=== PATIENT | male | born 1970 | race Hispanic/Latino ===

== ENCOUNTER 2016-07-20 13:55 | Emergency (ER) | payer MEDICAID ==
[2016-07-20 13:59] VITALS: BP 130/79; PULSE 109; RESP 20; O2SAT 95
--- NOTE | 2016-07-20 14:40 | ED PDOC ---
HPI: CCC, URI, Sore Throat Time Seen by Provider: 07/20/16 14:10 Chief Complaint (Nursing): Cough, Cold, Congestion Chief Complaint (Provider): Cough History Per: Patient History/Exam Limitations: no limitations Have you had recent travel within the past 21 days to any of the following countries: [place], [place], [place] or [place]?: No Onset/Duration Of Symptoms: Days (x10 days) Current Symptoms Are (Timing): Still Present Location Of Pain: Throat, Diffuse Myalgias, Headache, Other (head, back, and chest pain) Associated Symptoms: Fever, Sore Throat, Cough (productive, non-bloody), Sputum (yellow), Myalgias, Nasal Congestion, Diarrhea (x12 episodes, watery stool). denies: Nausea, Vomiting Severity: Moderate Additional Complaint(s): Tyrese Ledezma is a 45 year old male, with a past medical history of asthma and bronchitis, who presents to the emergency department for the evaluation of a productive, non-bloody cough that produces yellow sputum, that the patient has been experiencing for the past 10 days. Patient was recently seen in [facility] and prescribed Augmentin 2 days ago; however, it provided no relief, prompting his visit to the emergency department. Associated nasal congestion, diffuse myalgias, fever, headache, 12 episodes of watery diarrhea, and head, back, and chest pain are currently present. Denies nausea or vomiting. Of note, patient denies taking any anti-pyretics at home. PMD: none specified Past Medical History Reviewed: Historical Data, Nursing Documentation, Vital Signs Vital Signs: Last Vital Signs Temp 103 F H 07/20/16 18:33 Pulse 109 H 07/20/16 13:57 Resp 20 07/20/16 13:57 BP 130/79 07/20/16 13:57 Pulse Ox 95 07/20/16 15:07 - Medical History PMH: Anxiety, Asthma, Bronchitis, Depression Denies: Chronic Kidney Disease - Family History Family History: States: No Known Family Hx - Social History Current smoker - smoking cessation education provided: Yes (>10 cigarettes daily ) Alcohol: Social Drugs: Cannabis - Home Medications Home Medications: Ambulatory Orders Medication Instructions Recorded Azithromycin [Zithromax] 500 mg PO DAILY #6 tab 07/20/16 Methylprednisolone [Medrol Dose 4 mg PO DAILY #21 mg 07/20/16 Pack (21 tabs)] Promethazine HCl/Codeine 5 ml PO HS #80 ml 07/20/16 [Prometh-Codein 6.25-10 mg/5 ml] - Allergies Allergies/Adverse Reactions: Allergies Allergy/AdvReac Type Severity Reaction Status Date / Time No Known Allergies Allergy Verified 07/20/16 13:56 Review of Systems ROS Statement: Except As Marked, All Systems Reviewed And Found Negative Constitutional: Positive for: Fever, Other (diffuse myalgias) ENT: Positive for: Nose Congestion Cardiovascular: Positive for: Chest Pain Respiratory: Positive for: Cough, Sputum (yellow). Negative for: Hemoptysis Gastrointestinal: Positive for: Diarrhea (x12 episodes, watery stool). Negative for: Nausea, Vomiting Musculoskeletal: Positive for: Back Pain, Other (head pain) Neurological: Positive for: Headache Physical Exam - Reviewed Nursing Documentation Reviewed: Yes Vital Signs Reviewed: Yes - Physical Exam Appears: Positive for: Non-toxic, In Acute Distress (mild respiratory distress) Head Exam: Positive for: ATRAUMATIC, NORMOCEPHALIC Skin: Positive for: Normal Color, Warm, Dry ENT: Positive for: Normal ENT Inspection, Nasal Congestion. Negative for: Pharyngeal Erythema, Tonsillar Exudate, Tonsillar Swelling Neck: Positive for: Normal, Painless ROM, Supple Cardiovascular/Chest: Positive for: Regular Rate, Rhythm. Negative for: Murmur Respiratory: Positive for: Normal Breath Sounds. Negative for: Respiratory Distress Back: Positive for: Normal Inspection. Negative for: L CVA Tenderness, R CVA Tenderness Neurologic/Psych: Positive for: Alert, Oriented - Laboratory Results Result Diagrams: 07/20/16 18:00 07/20/16 18:00 - ECG O2 Sat by Pulse Oximetry: 95 (RA) Pulse Ox Interpretation: Normal Medical Decision Making Medical Decision Makin:10 Initial Impression: URI Initial Plan: * Chest X-Ray: Prominent central pulmonary markings compatible with lower airways disease, bronchitis. No discrete infiltrates * CBC, COMP and Blood Cultures * WBCs WNL * Repeat temp: 98.7 F * * Started on IV Rocephin and Zithro while in ED Scribe Attestation: Documented by Steve Poon, acting as a scribe for TANYA Salguero. Provider Scribe Attestation: All medical record entries made by the Scribe were at my direction and personally dictated by me. I have reviewed the chart and agree that the record accurately reflects my personal performance of the history, physical exam, medical decision making, and the department course for this patient. I have also personally directed, reviewed, and agree with the discharge instructions and disposition. Disposition - Clinical Impression Clinical Impression: Bronchitis - Patient ED Disposition Is Patient to be Admitted: No - Disposition Disposition: Routine/Home Disposition Time: 19:14 Condition: STABLE Prescriptions: Methylprednisolone [Medrol Dose Pack (21 tabs)] 4 mg PO DAILY #21 mg Promethazine HCl/Codeine [Prometh-Codein 6.25-10 mg/5 ml] 5 ml PO HS #80 ml Azithromycin [Zithromax] 500 mg PO DAILY #6 tab Instructions: Acute Bronchitis (ED) - POA Present On Arrival: None
--- NOTE | 2016-07-20 15:57 | RAD ---
HISTORY: fever and cough COMPARISON: None. TECHNIQUE: Chest PA and lateral FINDINGS: LUNGS: Increased interstitial markings without focal infiltrate. Significance/etiology uncertain. Likely lower airway disease, bronchitis. PLEURA: No significant pleural effusion identified. No pneumothorax apparent. CARDIOVASCULAR: Normal. OSSEOUS STRUCTURES: No significant abnormalities. VISUALIZED UPPER ABDOMEN: Normal. OTHER FINDINGS: None. IMPRESSION: Prominent central pulmonary markings compatible with lower airways disease, bronchitis. No discrete infiltrates
[2016-07-20] MEDS ORDERED: cefTRIAXone (Rocephin) 1 gm Inj ONE (18:10)
[2016-07-20 18:28] LABS: BASO % 0.2 % (0.0-2.0); HEMATOCRIT 38.2 % (35.0-51.0); LYMPH # 0.5 K/uL (1.0-4.3); LYMPH % 5.2 % (20.0-40.0); MEAN CELL VOLUME 86.2 fl (80.0-94.0); MEAN CORPUSCULAR HEMOGLOBIN 29.5 pg (27.0-31.0); MEAN CORPUSCULAR HGB CONC 34.2 g/dL (33.0-37.0); MEAN PLATELET VOLUME 7.3 fl (7.2-11.7); MONO # 0.3 K/uL (0.0-0.8); MONO % 2.5 % (0.0-10.0); NEUT # 9.4 K/uL (1.8-7.0); NEUT % 92.1 % (50.0-75.0); NRBC % 0.1 % (0.0-0.0); PLATELET COUNT 143 K/uL (130-400); WHITE BLOOD COUNT 10.2 K/uL (4.8-10.8)
[2016-07-20 18:33] VITALS: TEMP 103
[2016-07-20 18:37] LABS: ALB/GLOB RATIO 1.1 (1.0-2.1); ALKALINE PHOSPHATASE 55 U/L (38-126); ALT/SGPT 43 U/L (21-72); AST/SGOT 63 U/L (17-59); BILIRUBIN,TOTAL 0.6 mg/dl (0.2-1.3); BLOOD UREA NITROGEN 13 mg/dl (9-20); CALCIUM 8.2 mg/dL (8.4-10.2); CARBON DIOXIDE 25 mmol/L (22-30); CHLORIDE 95 mmol/L (98-107); GFR AFRICAN-AMERICAN > 60; GLUCOSE,RANDOM 100 mg/dL (75-110); POTASSIUM 4.3 MMOL/L (3.6-5.0); SODIUM 133 mmol/l (132-148)
[2016-07-20 21:12] LABS: NEUTROPHIL 84 % (42-75); TOTAL CELLS COUNTED 100
[2016-07-21] MEDS ORDERED: Azithromycin 500 MG in Sodium Chloride 0.9% 250 ML IVPB SCH (09:00)
== END 2016-07-20 19:58 | disposition home or self-care (01) ==
LOC: H.ER 13:55
DX: J20.9 Acute bronchitis, unspecified (principal); J02.9 Acute pharyngitis, unspecified; R51 Headache; R07.9 Chest pain, unspecified; F17.210 Nicotine dependence, cigarettes, uncomplicated; F41.9 Anxiety disorder, unspecified; R50.9 Fever, unspecified; R05 Cough; J45.909 Unspecified asthma, uncomplicated

== ENCOUNTER 2016-12-21 10:49 | Emergency (ER) | payer MEDICAID ==
[2016-12-21 11:21] VITALS: BMI 31.5
[2016-12-21 12:15] LABS: MEAN CELL VOLUME 87.4 fl (80.0-94.0); MEAN CORPUSCULAR HEMOGLOBIN 29.9 pg (27.0-31.0); MEAN CORPUSCULAR HGB CONC 34.2 g/dL (33.0-37.0); RED CELL DISTRIBUTION WIDTH 14.4 % (11.5-14.5)
[2016-12-21 12:16] LABS: RBC URINE 2 /hpf (0-3); URINE BACTERIA RARE (<OCC); URINE BILIRUBIN NEGATIVE (NEGATIVE); URINE BLOOD NEGATIVE (NEGATIVE); URINE COLOR YELLOW (YELLOW); URINE GLUCOSE (UA) NEG (Normal); URINE KETONE TRACE mg/dL (NEGATIVE); URINE LEUKOCYTE ESTERASE NEG Leu/uL (Negative); URINE PROTEIN NEGATIVE (NEGATIVE); URINE UROBILINOGEN 0.2-1.0 mg/dL (0.2-1.0); WBC URINE 1 /hpf (0-5)
[2016-12-21 12:22] LABS: ALB/GLOB RATIO 1.5 (1.0-2.1); ALCOHOL SERUM < 10 mg/dl (0-10); ALKALINE PHOSPHATASE 64 U/L (38-126); ALT/SGPT 22 U/L (21-72); AST/SGOT 16 U/L (17-59); BILIRUBIN,TOTAL 0.5 mg/dl (0.2-1.3); BLOOD UREA NITROGEN 12 mg/dl (9-20); CARBON DIOXIDE 25 mmol/L (22-30); CHLORIDE 105 mmol/L (98-107); GFR AFRICAN-AMERICAN > 60; GLUCOSE,RANDOM 91 mg/dL (75-110); POTASSIUM 4.6 MMOL/L (3.6-5.0); SODIUM 138 mmol/l (132-148); TOTAL PROTEIN 6.8 G/DL (6.3-8.2)
--- NOTE | 2016-12-21 12:33 | ED PDOC ---
HPI: Psych/Substance Abuse Time Seen by Provider: 12/21/16 10:54 Chief Complaint (Nursing): Psychiatric Evaluation Chief Complaint (Provider): SI History Per: Patient History/Exam Limitations: no limitations Onset/Duration Of Symptoms: Days Current Symptoms Are (Timing): Still Present Additional Complaint(s): Pt states he is having SI because he does not like living in the snf, he is never alone and the girl he likes does not like him. Pt denies plan. History of depression and anxiety Past Medical History Reviewed: Historical Data, Nursing Documentation, Vital Signs Vital Signs: Last Vital Signs Temp 98.5 F 12/21/16 11:38 Pulse 84 12/21/16 11:38 Resp 17 12/21/16 11:38 BP 135/78 12/21/16 11:38 Pulse Ox 99 12/21/16 11:38 - Medical History PMH: Anxiety, Asthma, Bronchitis, Depression Denies: Diabetes, Hepatitis, HIV, HTN, Chronic Kidney Disease, Seizures, Sexually Transmitted Disease - Surgical History Surgical History: No Surg Hx - Family History Family History: States: Unknown Family Hx - Living Arrangements Living Arrangements: Other (Homeless - Stays in snf) - Social History Current smoker - smoking cessation education provided: No Alcohol: Occasional Drugs: Denies - Immunization History Hx Tetanus Toxoid Vaccination: No Hx Influenza Vaccination: (unk) Hx Pneumococcal Vaccination: (unk) - Home Medications Home Medications: Ambulatory Orders Medication Instructions Recorded Albuterol HFA [Ventolin HFA 90 2 puff IH [id number] PRN 12/03/16 mcg/actuation (8 g)] Escitalopram [Lexapro] 10 mg PO DAILY #5 tab 12/03/16 Ibuprofen [Motrin] 600 mg PO TID 12/03/16 QUEtiapine [SEROquel] 100 mg PO HS #5 tab 12/03/16 Venlafaxine [Effexor XR] 75 mg PO TID #15 cer 12/03/16 busPIRone [Buspar] 5 mg PO TID #15 tab 12/03/16 Amoxicillin [Amoxil 500 mg Cap] 500 mg PO TID 12/21/16 Cetirizine HCl [All Day Allergy 10 mg PO DAILY 12/21/16 Relief] Fluticasone/Salmeterol [Airduo 1 puff IH Q12H 12/21/16 Respiclick 232-14 Mcg] Gabapentin [Neurontin] 300 mg PO TID 12/21/16 - Allergies Allergies/Adverse Reactions: Allergies Allergy/AdvReac Type Severity Reaction Status Date / Time No Known Allergies Allergy Verified 12/03/16 10:23 Review of Systems ROS Statement: Except As Marked, All Systems Reviewed And Found Negative Constitutional: Negative for: Fever, Chills Gastrointestinal: Negative for: Nausea, Vomiting, Abdominal Pain Psych: Positive for: Suicidal ideation Physical Exam - Reviewed Nursing Documentation Reviewed: Yes Vital Signs Reviewed: Yes - Physical Exam Appears: Positive for: Well, Non-toxic, No Acute Distress Head Exam: Positive for: ATRAUMATIC, NORMAL INSPECTION, NORMOCEPHALIC Skin: Positive for: Normal Color, Warm, DRY Eye Exam: Positive for: Normal appearance ENT: Positive for: Normal ENT Inspection Neck: Positive for: Normal, Painless ROM Cardiovascular/Chest: Positive for: Regular Rate, Rhythm Respiratory: Positive for: CNT, Normal Breath Sounds Gastrointestinal/Abdominal: Positive for: Normal Exam, Bowel Sounds, Soft Back: Positive for: Normal Inspection Extremity: Positive for: Normal ROM. Negative for: Tenderness Neurologic/Psych: Positive for: Alert, Oriented - Laboratory Results Result Diagrams: 12/21/16 11:54 12/21/16 11:54 - ECG O2 Sat by Pulse Oximetry: 99 Medical Decision Making Medical Decision Making: Pt screened by [facility]. Disposition - Clinical Impression Clinical Impression: Depression - Disposition Referrals: [facility] [Outside] Disposition: Routine/Home Disposition Time: 18:54 Condition: GOOD Instructions: Depression (ED) Forms: [employer] (Mongolian)
--- NOTE | 2016-12-21 16:02 | RAD ---
HISTORY: COMPARISON: 07/20/2016. TECHNIQUE: Chest PA and lateral FINDINGS: LINES AND TUBES: None. LUNG AND PLEURA: The lungs are hyperinflated and there is peribronchial thickening with chronic changes in both lungs. No focal consolidation. HEART AND MEDIASTINUM: The heart is not enlarged. The hilar and mediastinal contours are within normal limits. SKELETAL STRUCTURES: The bony structures are within normal limits for the patient's age. VISUALIZED UPPER ABDOMEN: Normal. OTHER FINDINGS: None. IMPRESSION: No active pulmonary disease. COPD.
--- NOTE | 2016-12-21 17:20 | CARD ---
APPROVED REPORT EKG Measurement Heart [id number] <Conclusion> Normal sinus rhythm Normal ECG
[2016-12-21 18:33] VITALS: BP 115/60; PULSE 73; RESP 18; TEMP 98
[2016-12-21 18:54] VITALS: O2SAT 99
== END 2016-12-21 19:50 | disposition home or self-care (01) ==
LOC: H.ER 10:49
DX: F32.9 Major depressive disorder, single episode, unspecified (principal); F41.9 Anxiety disorder, unspecified

== ENCOUNTER 2017-01-03 21:17 | Emergency (ER) | payer MEDICAID ==
[2017-01-03 21:17] VITALS: BMI 31.5
[2017-01-03 21:21] VITALS: O2SAT 99
[2017-01-03] MEDS ORDERED: Albuterol 0.083% Inhal Sol (2.5 mg/3 mL) UD INH ONE (21:46)
--- NOTE | 2017-01-03 21:47 | ED PDOC ---
HPI: CCC, URI, Sore Throat Time Seen by Provider: 01/03/17 21:25 Chief Complaint (Nursing): Cough, Cold, Congestion Chief Complaint (Provider): Cough History Per: Patient History/Exam Limitations: no limitations Onset/Duration Of Symptoms: Days Current Symptoms Are (Timing): Still Present Associated Symptoms: Fever, Cough, Sputum, Nausea Additional Complaint(s): Tyrese is a 46 y/o male with a past medical history of anxiety, depression, and asthma, who presents to the ED complaining of a productive cough with associated dizziness, headache, and shortness of breath. Cough is productive of yellow or clear phlegm. He reports having a subjective fever and feels nauseous but has not vomited. . PMD: [facility] Past Medical History Reviewed: Historical Data, Nursing Documentation, Vital Signs Vital Signs: Last Vital Signs Temp 98.5 F 01/04/17 00:25 Pulse 92 H 01/04/17 00:25 Resp 16 01/04/17 00:25 BP 112/62 01/04/17 00:25 Pulse Ox 99 01/04/17 00:28 - Medical History PMH: Anxiety, Asthma, Bronchitis, Depression Denies: Diabetes, Hepatitis, HIV, HTN, Chronic Kidney Disease, Seizures, Sexually Transmitted Disease - Surgical History Other surgeries: Lumbar spine surgery, recent dental work - Family History Family History: States: Unknown Family Hx - Social History Current smoker - smoking cessation education provided: No Alcohol: None Drugs: Denies - Immunization History Hx Tetanus Toxoid Vaccination: No Hx Influenza Vaccination: (unk) Hx Pneumococcal Vaccination: (unk) - Home Medications Home Medications: Ambulatory Orders Medication Instructions Recorded Escitalopram [Lexapro] 10 mg PO DAILY #5 tab 12/03/16 Ibuprofen [Motrin] 600 mg PO TID 12/03/16 QUEtiapine [SEROquel] 100 mg PO HS #5 tab 12/03/16 Venlafaxine [Effexor XR] 75 mg PO TID #15 cer 12/03/16 busPIRone [Buspar] 5 mg PO TID #15 tab 12/03/16 Cetirizine HCl [All Day Allergy 10 mg PO DAILY 12/21/16 Relief] Fluticasone/Salmeterol [Airduo 1 puff IH Q12H 12/21/16 Respiclick 232-14 Mcg] Gabapentin [Neurontin] 300 mg PO TID 12/21/16 Albuterol HFA [Ventolin HFA 90 2 puff INH Q6 PRN 01/04/17 mcg/actuation (8 g)] Azithromycin [Zithromax] 250 mg PO DAILY #6 tab 01/04/17 Ibuprofen [Motrin Tab] 200 mg PO Q6 PRN 01/04/17 - Allergies Allergies/Adverse Reactions: Allergies Allergy/AdvReac Type Severity Reaction Status Date / Time No Known Allergies Allergy Verified 01/04/17 04:11 Review of Systems ROS Statement: Except As Marked, All Systems Reviewed And Found Negative Constitutional: Positive for: Fever (subjective) Cardiovascular: Positive for: Chest Pain (while coughing) Respiratory: Positive for: Cough, Shortness of Breath Gastrointestinal: Positive for: Nausea. Negative for: Vomiting, Abdominal Pain , Diarrhea Musculoskeletal: Negative for: Back Pain Neurological: Positive for: Headache, Dizziness Psych: Negative for: Suicidal ideation Physical Exam - Reviewed Nursing Documentation Reviewed: Yes Vital Signs Reviewed: Yes - Physical Exam Appears: Positive for: Non-toxic, No Acute Distress Head Exam: Positive for: ATRAUMATIC, NORMOCEPHALIC Skin: Positive for: Normal Color, Warm, Dry Eye Exam: Positive for: EOMI, Normal appearance, PERRL ENT: Positive for: Normal ENT Inspection Neck: Positive for: Normal, Supple Cardiovascular/Chest: Positive for: Regular Rate, Rhythm. Negative for: Murmur Respiratory: Positive for: Decreased Breath Sounds. Negative for: Wheezing, Respiratory Distress Gastrointestinal/Abdominal: Positive for: Normal Exam, Soft. Negative for: Tenderness Back: Positive for: Normal Inspection. Negative for: Vertebral Tenderness Extremity: Positive for: Normal ROM. Negative for: Pedal Edema, Deformity Neurologic/Psych: Positive for: Alert, Oriented. Negative for: Motor/Sensory Deficits - Laboratory Results Result Diagrams: 01/03/17 21:52 01/03/17 21:52 - ECG O2 Sat by Pulse Oximetry: 99 (RA) Pulse Ox Interpretation: Normal Medical Decision Making Medical Decision Making: Initial Impression: cough, Rule out pneumonia, flu Time: 21:46 Initial Plan: --CBC --CMP --Chest x-ray 2 views --Blood culture --Influenza A B stat --Toradol 30 mg IV --Alubterol 2.5 mg INH --Peak Flow pre/post treatment --Pending reevaluation --Labs reviewed, negative for influenza serology. Time: 00:10 -Chest X-Ray results FINDINGS: Lungs: Stable mild interstitial prominence. No focal consolidation. Pleural space: Unremarkable. No pneumothorax. Heart: Unremarkable. No cardiomegaly. Mediastinum: Unremarkable. Bones/joints: No acute findings. IMPRESSION: Stable mild interstitial prominence. No focal consolidation. Query airways disease. Time: 00:21 Clinical Impression: Bronchitis Upon provider evaluation patient is medically stable, and requires no further treatment in the ED at this time. Patient will be discharged with Rx for Z-pack and Albuterol. Counseling was provided and all questions were answered regarding diagnosis. There is agreement to discharge plan. Return if symptoms persist or worsen. --Patient stable for discharge home, pt feels better Scribe Attestation: Documented by Chata Corley, acting as a scribe for Jos Klein MD Provider Scribe Attestation: All medical record entries made by the Scribe were at my direction and personally dictated by me. I have reviewed the chart and agree that the record accurately reflects my personal performance of the history, physical exam, medical decision making, and the department course for this patient. I have also personally directed, reviewed, and agree with the discharge instructions and disposition. Scribe Attestation: Documented by Jacquie Orozco, acting as a scribsmiley Klein MD Provider Scribe Attestation: All medical record entries made by the Laurenibnoble were at my direction and personally dictated by me. I have reviewed the chart and agree that the record accurately reflects my personal performance of the history, physical exam, medical decision making, and the department course for this patient. I have also personally directed, reviewed, and agree with the discharge instructions and disposition. Disposition - Clinical Impression Clinical Impression: Cough, Bronchitis - Patient ED Disposition Is Patient to be Admitted: No Counseled Patient/Family Regarding: Studies Performed, Diagnosis, Need For Followup - Disposition Referrals: [facility] [Outside] [facility] [Outside] Disposition: Routine/Home Disposition Time: 23:21 Condition: IMPROVED Additional Instructions: follow up with your primary doctor in 1-2 days return to the ED with any worsening or concerning symptoms Prescriptions: Azithromycin [Zithromax] 250 mg PO DAILY #6 tab Instructions: Acute Bronchitis (ED) Forms: [employer] (Polish)
[2017-01-03 22:01] LABS: BASO # 0.1 K/uL (0.0-0.2); BASO % 1.1 % (0.0-2.0); EOS # 0.1 K/uL (0.0-0.7); EOS % 1.1 % (0.0-4.0); HEMATOCRIT 39.8 % (35.0-51.0); LYMPH # 2.1 K/uL (1.0-4.3); LYMPH % 16.4 % (20.0-40.0); MEAN CORPUSCULAR HEMOGLOBIN 29.7 pg (27.0-31.0); MEAN CORPUSCULAR HGB CONC 33.7 g/dL (33.0-37.0); MEAN PLATELET VOLUME 7.1 fl (7.2-11.7); MONO # 1.2 K/uL (0.0-0.8); MONO % 9.3 % (0.0-10.0); NEUT # 9.4 K/uL (1.8-7.0); NEUT % 72.1 % (50.0-75.0); NRBC % 0.1 % (0.0-0.0); RED CELL DISTRIBUTION WIDTH 14.3 % (11.5-14.5)
[2017-01-03 22:43] LABS: ALKALINE PHOSPHATASE 62 U/L (38-126); ALT/SGPT 19 U/L (21-72); AST/SGOT 17 U/L (17-59); BILIRUBIN,TOTAL 1.3 mg/dl (0.2-1.3); BLOOD UREA NITROGEN 10 mg/dl (9-20); CALCIUM 9.2 mg/dL (8.4-10.2); CARBON DIOXIDE 25 mmol/L (22-30); CHLORIDE 104 mmol/L (98-107); GFR AFRICAN-AMERICAN > 60; GLUCOSE,RANDOM 93 mg/dL (75-110); SODIUM 141 mmol/l (132-148)
[2017-01-03 22:45] LABS: ALB/GLOB RATIO 1.3 (1.0-2.1)
[2017-01-03] MEDS ORDERED: Albuterol 0.083% Inhal Sol (2.5 mg/3 mL) UD ONE ×2 (23:18→23:52)
[2017-01-04 00:34] VITALS: RESP 16; TEMP 98.5
[2017-01-04 01:07] VITALS: BP 112/62; PULSE 92
--- NOTE | 2017-01-04 09:11 | RAD ---
HISTORY: cough rule out pneumonia COMPARISON: Chest radiographs 12/21/2016. TECHNIQUE: Chest PA and lateral FINDINGS: LUNGS: No acute pulmonary disease. Flattening of the hemidiaphragms and heterogeneous hyperlucency of lung rendon bilaterally is stable. This again suggests COPD. PLEURA: No significant pleural effusion identified. No pneumothorax apparent. CARDIOVASCULAR: Normal. OSSEOUS STRUCTURES: No significant abnormalities. VISUALIZED UPPER ABDOMEN: Normal. OTHER FINDINGS: None. IMPRESSION: No interval acute cardiopulmonary disease appreciated.COPD again suggested.
== END 2017-01-04 00:40 | disposition home or self-care (01) ==
LOC: H.ER 21:17
DX: J20.9 Acute bronchitis, unspecified (principal)
CPT/HCPCS: 71020; 80053; 85025; 87040; 87804; 94640; 96374; 99282; J1885; J2930

== ENCOUNTER 2017-01-04 04:08 | Inpatient (IN) | payer MEDICAID ==
[2017-01-04 04:08] VITALS: BMI 31.5
--- NOTE | 2017-01-04 04:33 | ED PDOC ---
HPI: Psych/Substance Abuse Time Seen by Provider: 01/04/17 04:17 Chief Complaint (Nursing): Psychiatric Evaluation Chief Complaint (Provider): Suicidal ideation History Per: Patient History/Exam Limitations: no limitations Current Symptoms Are (Timing): Still Present Additional Complaint(s): 46 y/o M with PMH of anxiety and depression presents to ED with depressed mood, self injurious behavior and suicidal ideation. Patient was seen and evaluated several hours earlier in this ED for cough and was diagnosed with bronchitis. He was discharged, but returns with thoughts of jumping off a bridge. Patient states he "doesn't want to do this anymore" and "doesn't want to go back to the intermediate." He reports self-injurious behavior which includes burning himself with cigarettes. Patient has been taking multiple psychiatric medications but states he ran out of his seroquel. He denies auditory or visual hallucinations. Past Medical History Vital Signs: Last Vital Signs Temp 98.9 F 01/04/17 04:11 Pulse 86 01/04/17 04:11 Resp 16 01/04/17 04:11 BP 133/73 01/04/17 04:11 Pulse Ox 98 01/04/17 04:11 - Medical History PMH: Anxiety, Asthma, Bronchitis, Depression Denies: Diabetes, Hepatitis, HIV, HTN, Chronic Kidney Disease, Seizures, Sexually Transmitted Disease - Family History Family History: States: Unknown Family Hx - Immunization History Hx Tetanus Toxoid Vaccination: No Hx Influenza Vaccination: (unk) Hx Pneumococcal Vaccination: (unk) - Home Medications Home Medications: Ambulatory Orders Medication Instructions Recorded Escitalopram [Lexapro] 10 mg PO DAILY #5 tab 12/03/16 Ibuprofen [Motrin] 600 mg PO TID 12/03/16 QUEtiapine [SEROquel] 100 mg PO HS #5 tab 12/03/16 Venlafaxine [Effexor XR] 75 mg PO TID #15 cer 12/03/16 busPIRone [Buspar] 5 mg PO TID #15 tab 12/03/16 Cetirizine HCl [All Day Allergy 10 mg PO DAILY 12/21/16 Relief] Fluticasone/Salmeterol [Airduo 1 puff IH Q12H 12/21/16 Respiclick 232-14 Mcg] Gabapentin [Neurontin] 300 mg PO TID 12/21/16 Albuterol HFA [Ventolin HFA 90 2 puff INH Q6 PRN 01/04/17 mcg/actuation (8 g)] Azithromycin [Zithromax] 250 mg PO DAILY #6 tab 01/04/17 Ibuprofen [Motrin Tab] 200 mg PO Q6 PRN 01/04/17 - Allergies Allergies/Adverse Reactions: Allergies Allergy/AdvReac Type Severity Reaction Status Date / Time No Known Allergies Allergy Verified 01/04/17 04:11 Review of Systems ROS Statement: Except As Marked, All Systems Reviewed And Found Negative Constitutional: Negative for: Fever Respiratory: Positive for: Cough. Negative for: Wheezing Gastrointestinal: Negative for: Nausea, Vomiting, Abdominal Pain, Diarrhea Psych: Positive for: Anxiety, Depression, Suicidal ideation. Negative for: Psychosis Physical Exam - Physical Exam Head Exam: Positive for: ATRAUMATIC, NORMAL INSPECTION, NORMOCEPHALIC Skin: Negative for: Normal Color (Numerous self-inflicted superficial villavicencio on extremities from cigarettes) Eye Exam: Positive for: Normal appearance, EOMI, PERRL Neck: Positive for: Normal, Painless ROM Cardiovascular/Chest: Positive for: Regular Rate, Rhythm. Negative for: Murmur Respiratory: Positive for: Other (B/L air entry present but slightly decreased) . Negative for: Wheezing, Respiratory Distress Gastrointestinal/Abdominal: Positive for: Soft. Negative for: Tenderness, Distended, Rebound Neurologic/Psych: Positive for: Alert, Oriented, Mood/Affect (depressed mood) - ECG O2 Sat by Pulse Oximetry: 98 - Progress ED Course And Treament: Crisis evaluation requested due to active suicidal ideation. Crisis recommends inpatient hospitalization due to depression/suicidal ideation. Condition: Unchanged Disposition - Clinical Impression Clinical Impression: Depression, Suicidal ideation - Patient ED Disposition Is Patient to be Admitted: Yes - Disposition Disposition Time: 06:16 Condition: FAIR Forms: [employer] (Chilean) - Pt Status Changed To: Hospital Disposition Of: Inpatient - Admit Certification Admit to Inpatient:: After my assessment, the patient will require hospitalization for at least two midnights. This is because of the severity of symptoms shown, intensity of services needed, and/or the medical risk in this patient being treated as an outpatient.
[2017-01-04 06:48] LABS: RBC URINE 1 /hpf (0-3); URINE BILIRUBIN MODERATE (NEGATIVE); URINE BLOOD NEGATIVE (NEGATIVE); URINE COLOR AMBER (YELLOW); URINE GLUCOSE (UA) NEG (Normal); URINE KETONE 20 mg/dL (NEGATIVE); URINE LEUKOCYTE ESTERASE NEG Leu/uL (Negative); URINE PROTEIN 100 mg/dL (NEGATIVE); WBC URINE 5 /hpf (0-5)
[2017-01-04 07:30] VITALS: O2SAT 97
--- NOTE | 2017-01-04 11:23 | PCM.BM ---
<Belen Singer - Last Filed: 01/04/17 11:25> Treatment Plan Problems - Problems identified on initial assessmt Problem 1 Date Initiated: 01/04/17 Hoplessness/Helplessness Date Initiated: 01/04/17 Time Initiated: 11:29 Assessment reference: NA Status: Active Treatment assets and liabiliti Patient Assests: cooperative, ADL independent, negotiates basic needs, cognitively intact Patient Liabilities: financial problems, poor support system - Milieu Protocol Maintain good personal hygiene: daily Encourage regular showers, daily Remind patient to perform daily oral care, every shift Assist patient to perform ADL's Maintain personal safety: every shift Educate patient to report safety concerns to staff, every shift Monitor environment for contraband/sharps Medication safety: Monitor for expected outcome, potential side effects: every shift, Assess barriers to learning: every shift, Assess readiness for medication education: every shift <Nereida Ferraro - Last Filed: 01/06/17 16:40> Treatment assets and liabiliti Patient Assests: adapts well, self-reliant, ADL independent, negotiates basic needs, good past tx response, cognitively intact Patient Liabilities: financial problems, poor support system, other (unstable housing) Family Contact Family involvement: Patient does not wish Family/SO involvement Family contact: Patient declines to allow family contact at present - Outside Agency Agency 1 Care involvment: Other Agency contact name: [facility] -[place] Agency contact number: ([phone]) - Goals for Treatment Patient goals for treatment: Patient to continue stabilization on 3NP through medication management and group/supportive therapy. Patient to be encouraged to attend groups regularly to promote self-awareness, sobriety, and improve insight , coping skills and self-esteem. Patient to be provided with referral for appropriate level of aftercare to reduce risk of future hospitalizations and ensure safety in the community. Discharge/Continuing Care - Education Needs Education Needs: Patient Medication, Patient Coping Skills, Patient Community resources, Patient Aftercare Safety Plan - Discharge Discharge Criteria: Tolerates medication w/o severe side effects, Free of Suicidal thoughts, Free of agitation, Normal sleep pattern, Ability to care for self, Reduction of target symptoms Discharge to:: Detention - Treatment Team Participation Patient/Family/SO Statement: 01/06/17 16:39 Patient remains isolative and withdrawn on 3NP. Patient remains in seclusion room on 1:1 for saftey secondary to inability to contract for saftey. Patient currently not participating in treatment and refused to attend treatment team. Patient has signed a 48 hour notice and is awaiting screening by [facility] for involuntary admission. Patient visited by [facility] worker today. Discussed with Family/SO: No
[2017-01-04] MEDS: Venlafaxine 150 mg ER Cap PO SCH (11:51)
[2017-01-04] MEDS ORDERED: DiphenhydrAMINE 50 mg/ml Inj IM PRN (12:25)
[2017-01-04] MEDS ORDERED: Alum-Mag Hydrox-Simethicone Susp (30 mL) PO PRN (12:25)
[2017-01-04] MEDS ORDERED: Magnesium Hydroxide Susp 30 ml UD PO PRN (12:25)
--- NOTE | 2017-01-04 15:32 | PCM.PSYCH ---
Initial Psychiatric Evaluation - Initial Psychiatric Evaluation Chief Complaint (in patient's own words): i am tired and i do not want to live anymore Patient's Reaction to Hospitalization: patient requested to leave but agreed to stay for help History of Present Illness and Precipitating Events: patient with previous diagnosis of depression and alcohol use in remission for one year currently living in a jail, patient has been increasingly depressed due to conflict with son has not seen in one year also having financial difficulties' patient also had conflict with [employer] worker , on day of admission he started to have suicidal thoughts with plan to jump off the bridge, he called suicidal hot line and was brought to ER for evaluation patient on evaluation extremely anxious and depressed, poor eye contact underproductive speech requesting to leave and continues ot have thoughts to end his life with plan to jump off [facility] patient refusing to eat Current Medications: Active Medications Generic Name Dose Route Start Last Admin Trade Name Freq PRN Reason Stop Dose Admin Acetaminophen 650 mg 01/04/17 12:25 Tylenol 325mg Tab PO Q4 PRN Pain, moderate (4-7) Al Hydrox/Mg Hydrox/Simethicone 30 ml 01/04/17 12:25 Maalox Plus 30 Ml PO Q4 PRN Dyspepsia Aripiprazole 5 mg 01/04/17 11:00 01/04/17 11:51 Abilify PO 5 mg DAILY IVET Administration Diphenhydramine HCl 50 mg 01/04/17 12:25 Benadryl IM Q6 PRN Extrapyramidal S/S Unable PO Diphenhydramine HCl 50 mg 01/04/17 12:25 Benadryl PO Q6 PRN Extrapyramidal Symptoms Haloperidol 5 mg 01/04/17 12:25 Haldol PO Q4 PRN Agitation Haloperidol Lactate 5 mg 01/04/17 12:25 Haldol IM Q4 PRN Agitation, Unable to Take PO Lorazepam 2 mg 01/04/17 10:55 01/04/17 11:51 Ativan PO 2 mg Q6 PRN Administration Anxiety Lorazepam 2 mg 01/04/17 12:25 Ativan IM Q4 PRN Anxiety/Agitation,Unable PO Magnesium Hydroxide 30 ml 01/04/17 12:25 Milk Of Magnesia PO HS PRN Constipation Venlafaxine HCl 150 mg 01/04/17 11:15 10/09/17 11:51 Effexor Xr PO 150 mg DAILY IVET Administration Past Psychiatric History - Past Psychiatric History Prior Professional Help: patient has previous hospitalizations but not giving details History of ETOH/Drug Use: patient has history of alcohol dependence has been in remission for a year History of Family Illness: denied Pertinent Medical Hx (Current Medical&Sleep Prob, Allergies): Allergies Allergy/AdvReac Type Severity Reaction Status Date / Time No Known Allergies Allergy Verified 01/04/17 04:11 Escitalopram [Lexapro] 10 mg PO DAILY #5 tab 12/03/16 Ibuprofen [Motrin] 600 mg PO TID 12/03/16 QUEtiapine [SEROquel] 100 mg PO HS #5 tab 12/03/16 Venlafaxine [Effexor XR] 75 mg PO TID #15 cer 12/03/16 busPIRone [Buspar] 5 mg PO TID #15 tab 12/03/16 Cetirizine HCl [All Day Allergy Relief] 10 mg PO DAILY 12/21/16 Fluticasone/Salmeterol [Airduo Respiclick 232-14 Mcg] 1 puff IH Q12H 12/21/16 Gabapentin [Neurontin] 300 mg PO TID 12/21/16 Albuterol HFA [Ventolin HFA 90 mcg/actuation (8 g)] 2 puff INH Q6 PRN 01/04/17 Azithromycin [Zithromax] 250 mg PO DAILY #6 tab 01/04/17 Ibuprofen [Motrin Tab] 200 mg PO Q6 PRN 01/04/17 Mental Status Examination - Affect Affect: Constricted, Depressed Additional comments: no eye contact severely depressed - Motor Activity Motor Activity: Psychomotor Retardation - Reliability in Providing Information Reliability in Providing Information: Poor, due to altered mood - Speech Additional comments: soft underproductive - Mood Mood: Depressed - Formal Thought Process Formal Thought Process: No Impairment - Hallucinations/Delusions Additional comments: denied perceptual disturbances non elicited - Obsessions/Compulsions Obsessions: No Compulsions: No - Cognitive Functions Orientation: Person, Place Sensorium: Alert Attention/Concentration: Attentive, Easily distracted Abstract Thinking: [place] Estimate of Intelligence: Average Judgement: Imparied, as evidence by: Poor judgement - Risk Risk: Suicidal Additional comments: patient continues to have suicidal thoughts with plan to jump off bridge start 1;1 observation for suicidal risk - Strength & Assets Inventory Strength & Assets Inventory: Intelligence - Limitations Additional comments: homeless with financial difficulties DSM 5 DX - DSM 5 DSM 5 Diagnosis: major depression recurrent severe - Recommended/Plan of Treatment Treatment Recommendations and Plan of Treatment: patient continues to have active suicidal thoughts even on the unit patient stated he would find any means on the unit to hurt himself iramiue placed on 1;1 observation for suicidal risk start abilify 5mg effexor 150mg ativan 2mg prn for anxiety brief psychotherapy provided Prognosis: guarded Discharge Plan and Discharge Criteria: pt no longer suicidal risk
[2017-01-04] MEDS ORDERED: Albuterol HFA 90 mcg/actuation (8 g) INH PRN (18:06)
--- NOTE | 2017-01-04 18:22 | CP.PCM.HP ---
History of Present Illness - History of Present Illness History of Present Illness: CC: Depression, suicidal ideation This is a 46 year old male with a past medical history significant for asthma for whch he is on Advair and Albuterol PRN, with history of bronchitis over the last week for which he has been taking Azithromycin. He also has history of depression and alcohol abuse, in remission for one year. He is currently living in a homeless jail. This morning he began to have suicidal thoughts and called suicide hot line and was brought to the ED for evaluation. He was subsequently admitted to the psych unit. The patient currently is complaining of occasional cough related to his bronchitis but denies any other medical problems currently. Present on Admission - Present on Admission Any Indicators Present on Admission: No Review of Systems - Hematologic/Lymphatic Additional comments: REVIEW OF SYSTEMS: CONSTITUTIONAL: + Fatigue. No weight loss, fever, chills, weakness. HEENT: Eyes: No visual loss, blurred vision, double vision or yellow sclerae. Ears, Nose, Throat: No hearing loss, sneezing, congestion, runny nose or sore throat. SKIN: No rash or itching. CARDIOVASCULAR: No chest pain, chest pressure or chest discomfort. No palpitations or edema. RESPIRATORY: + Cough and sputum production. Denies sob. GASTROINTESTINAL: No anorexia, nausea, vomiting or diarrhea. No abdominal pain or blood. GENITOURINARY: no frequency, dysuria, cloudy urine NEUROLOGICAL: No headache, dizziness, syncope, paralysis, ataxia, numbness or tingling in the extremities. No change in bowel or bladder control. MUSCULOSKELETAL: No muscle, back pain, joint pain or stiffness. HEMATOLOGIC: No anemia, bleeding or bruising. LYMPHATICS: No enlarged nodes. No history of splenectomy. PSYCHIATRIC: No history of depression or anxiety. ENDOCRINOLOGIC: No reports of sweating, cold or heat intolerance. No polyuria or polydipsia. ALLERGIES: No history of asthma, hives, eczema or rhinitis. Past Patient History - Past Social History Smoking Status: Heavy Smoker > 10 Cigarettes Daily Alcohol: Occasional Drugs: Denies Home Situation {Lives}: Homeless - CARDIAC Hx Cardiac Disorders: No - PULMONARY Hx Respiratory Disorders: Yes Hx Bronchitis: Yes (Currently have Bronchitis) Hx Pneumonia: Yes - NEUROLOGICAL Hx Neurological Disorder: No Hx Seizures: No - HEENT Hx HEENT Problems: No - RENAL Hx Chronic Kidney Disease: No - ENDOCRINE/METABOLIC Hx Endocrine Disorders: No - HEMATOLOGICAL/ONCOLOGICAL Hx Blood Disorders: No Hx Human Immunodeficiency Virus (HIV): No - INTEGUMENTARY Hx Dermatological Problems: No - MUSCULOSKELETAL/RHEUMATOLOGICAL Hx Musculoskeletal Disorders: Yes - GASTROINTESTINAL Hx Gastrointestinal Disorders: No - GENITOURINARY/GYNECOLOGICAL Hx Genitourinary Disorders: No Hx Sexually Transmitted Disorders: No - PSYCHIATRIC Hx Anxiety: Yes Hx Depression: Yes Hx Substance Use: No (Smoked weed once two months ago as per patient) - SURGICAL HISTORY Hx Surgeries: Yes Hx Musculoskeletal Surgery: Yes (Lumbar spine) - ANESTHESIA Hx Anesthesia: Yes Hx Anesthesia Reactions: No Meds Allergies/Adverse Reactions: Allergies Allergy/AdvReac Type Severity Reaction Status Date / Time No Known Allergies Allergy Verified 01/04/17 04:11 Physical Exam - Additional Findings Additional findings: PHYSICAL EXAMINATION: GENERAL: The patient is alert and oriented x 3, appears comfortable HEENT: Normocephalic, atraumatic. Extraocular movements intact. No sinus tenderness. Oropharynx clear. Mucous membranes are moist. no scleral icterus NECK: Supple without lymph node. CHEST: Diffuse wheezes, no rales or rhonchi HEART: S1, S2. regular rate and rhythm ABDOMEN: Soft, nontender, nondistended No organomegaly. EXTREMITIES: No cyanosis, clubbing or edema. NEUROLOGIC: No focal deficit. No sensory deficit. PSYCHOSOCIAL: No signs of depression and is nonfocal. INTEGUMENT: Moist mucous membranes. Good skin turgor, intact. Results - Vital Signs Recent Vital Signs: Last Vital Signs Temp 97.2 F L 01/04/17 16:53 Pulse 93 H 01/04/17 16:53 Resp 18 01/04/17 16:53 BP 131/77 01/04/17 16:53 Pulse Ox 97 01/04/17 07:28 - Labs Labs: Laboratory Results - last 24 hr 01/04/17 01/04/17 01/04/17 04:43 05:38 05:38 Urine Color [place] Urine Clarity Cloudy Urine pH 5.0 Ur Specific [place] 1.033 H Urine Protein 100 Urine Glucose (UA) Neg Urine Ketones 20 Urine Blood Negative Urine Nitrate Negative Urine Bilirubin Moderate Urine Urobilinogen 4.0 Ur Leukocyte Esterase Neg Urine RBC (Auto) 1 Urine Microscopic WBC 5 Ur Squamous Epith Cells 1 Hyaline Casts 6-10 H Urine Opiates Screen Negative Urine Methadone Screen Negative Ur Barbiturates Screen Negative Ur Phencyclidine Scrn Negative Ur Amphetamines Screen Negative U Benzodiazepines Scrn Negative U Oth Cocaine Metabols Negative U Cannabinoids Screen Negative Alcohol, Quantitative < 10 Assessment & Plan - Assessment and Plan (Free Text) Plan: ASSESSMENT - Depression with suicidal ideation - Acute bronchitis - History of asthma currently with wheezing - Clean urine toxicology - Urinalysis shows some hyaline casts, otherwise unremarkable PLAN - Restart home Azithromycin to complete his course - Continue Albuterol PRN for SOB or wheezing, with low threshold to use - Continue Cetirizine 10 mg po daily - continue Advair - Continue Neurontin - rest of psychiatric medications/management as per primary - F/u further labwork pending for tomorrow including TSH, T4, HGA1C, Lipid profile - Thank you for the consultation
[2017-01-04] MEDS: Fluticasone-Salmeterol 500-50mcg Diskus IH SCH (21:39)
[2017-01-05 07:49] LABS: THYROID STIMULATING HORMONE 1.98 mIU/ML (0.46-4.68)
[2017-01-05 07:58] LABS: T4 6.95 ug/dl (5.5-11.0)
[2017-01-05] MEDS: Fluticasone-Salmeterol 500-50mcg Diskus IH SCH ×2 (09:00→21:50)
[2017-01-05] MEDS: Venlafaxine 150 mg ER Cap PO SCH (09:08)
--- NOTE | 2017-01-05 12:49 | CARD ---
APPROVED REPORT EKG Measurement Heart [id number] <Conclusion> Normal sinus rhythm Normal ECG
--- NOTE | 2017-01-05 15:22 | PCM.PYCHPN ---
Psychiatric Progress Note - Psychiatric Progress Note Patient seen today, length of contact: PATIENT EVALUATED DISCUSSED WITH TEAM CHART REVIEWED Patient Chief Complaint: I DO NOT NEED REGULATIONS ON ME PATIENT WITH NO EYE CONTACT UNDERPRODUCTIVE SPEECH UNCOOPERATIVE WITH INTERVIEW Problems Identified/Issues Discussed: MAJOR DEPRESSION SUICIDAL IDEATIONS W DSM 5 Symptoms Update: MAJOR DEPRESSION SEVERE RECURRENT Medication Change: Yes (INCREASE ABILIFY TO 10MG DAILY) Medical Record Reviewed: Yes Mental Status Examination - Cognitive Function Orientation: Person, Place Attention: Poor Concentration: Poor Association: WNL Fund of Knowledge: WNL Decription of patient's judgement and insights: IFAIR INSIGHT POOR JUDGMENT POOR IMPULSE CONTROL - Mood Mood: Depressed - Affect Affect: Constricted, Depressed - Speech Additional comments: ETREMELY UNDERPRODUCTIVE PT REFUSING TO COMMUNICATE - Formal Thought Process Formal Thought Process: Paranoia Psychotic Thoughts and Behaviors: PATIENT GUARDED PARANOID - Suicidal Ideation Suicidal Ideation: Yes Plan: TO HANG OR SHOOT SELF - Homicidal Ideation Homicidal Ideation: No Plan: PATIENT WILL BE CONTINUED ON1;1 PRECAUTIONS FOR SUICIDAL RISK ABILIFY INCREASE TO 10MG AND WILL INCREASE EFFEXOR GRADUALLY SUPPORTIVE PSYCHOTHERAPY PROVIDED PATIENT INCOOPERATIVE WITH TREATMENT REFUSING TO ATTEND GROUPS ATTEMPTED TO CONTACT [facility] WORKER PATIENT CONTINOUSLY ENCOURAGED TO ATTEND GROUPS AND EAT CBT PROVIDED Goal/Treatment Plan - Goal/Treatment Plan Need for Continued Stay: Severe depression anxiety Progress Toward Problem(s) and Goals/Treatment Plan: patient continues to have active suicidal thoughts even on the unit patient stated he would find any means on the unit to hurt himself cotiue placed on 1;1 observation for suicidal risk INCREASE ABILIFY TO 10MG ativan 2mg prn for anxiety f psychotherapy provided CONTACT ICMS WORKER FOR MORE INFORMATION - Smoking Cessation Smoking Cessation Initiated: No Reason for not providing: PT UNCOOPERATIVE
[2017-01-06] MEDS: Fluticasone-Salmeterol 500-50mcg Diskus IH SCH ×2 (13:28→21:51)
[2017-01-06] MEDS: Venlafaxine 150 mg ER Cap PO SCH (13:34)
--- NOTE | 2017-01-06 15:07 | PCM.PYCHPN ---
Psychiatric Progress Note - Psychiatric Progress Note Patient seen today, length of contact: PATIENT EVALUATED DISCUSSED WITH TEAM CHART REVIEWED Patient Chief Complaint: I DO NOT NEED TO BE HERE PATIENT WITH NO EYE CONTACT UNDERPRODUCTIVE SPEECH UNCOOPERATIVE WITH INTERVIEW Problems Identified/Issues Discussed: MAJOR DEPRESSION SUICIDAL IDEATIONS PATIENT CONTINUES TO BE ISOLATIVE SELECTIVELY MUTE PATIENT CONTINUES TO HAVE ACTIVE SUICIDAL IDEATIONS, NON COOPERATIVE WITH TREATMENT REFUSING TO EAT REFUSING PARTIALLY COMPLIANT WITH MEDICATIONS PATIENT REQUESTED TO BE DISCHARGED AND SIGNED 48 HOUR NOTICE PATIENT CONTINUES TO BE HIGH SUICIDE RISK PATIENT REFERRED FOR SCREENING FOR INVOLUNTARY ADMISSION Medication Change: No (INCREASE ABILIFY TO 10MG DAILY) Medical Record Reviewed: No Mental Status Examination - Cognitive Function Orientation: Person, Place Attention: Poor Concentration: Poor Association: WNL Fund of Knowledge: WNL Decription of patient's judgement and insights: IFAIR POOR INSIGHT POOR JUDGMENT POOR IMPULSE CONTROL - Mood Mood: Depressed - Affect Affect: Constricted, Depressed - Formal Thought Process Formal Thought Process: Paranoia Psychotic Thoughts and Behaviors: PATIENT GUARDED PARANOID UNCOOPERATIVE APPEARS INTERNALLY PREOCCUPIED CONTINUES TO HAVE ACTIVE SUICIDAL THOUGHTS - Suicidal Ideation Suicidal Ideation: Yes Plan: SHOOT OR HANG HIMSELF - Homicidal Ideation Homicidal Ideation: No Goal/Treatment Plan - Goal/Treatment Plan Need for Continued Stay: Severe depression anxiety Progress Toward Problem(s) and Goals/Treatment Plan: patient continues to have active suicidal thoughts even on the unit patient stated he would find any means on the unit to hurt himself continue on 1;1 observation for suicidal risk continue with abilify and effexor patient requesting to leave however continues to be high suicide risk will be screened for involuntary admission
[2017-01-06 19:01] LABS: HEMATOCRIT 42.4 % (35.0-51.0); MEAN CELL VOLUME 88.4 fl (80.0-94.0); MEAN CORPUSCULAR HEMOGLOBIN 29.2 pg (27.0-31.0); RED CELL DISTRIBUTION WIDTH 13.9 % (11.5-14.5); WHITE BLOOD COUNT 10.9 K/uL (4.8-10.8)
[2017-01-06 19:08] LABS: ALB/GLOB RATIO 1.3 (1.0-2.1); ALKALINE PHOSPHATASE 73 U/L (38-126); ALT/SGPT 29 U/L (21-72); AST/SGOT 25 U/L (17-59); BILIRUBIN,TOTAL 0.9 mg/dl (0.2-1.3); BLOOD UREA NITROGEN 20 mg/dl (9-20); CALCIUM 8.8 mg/dL (8.4-10.2); CARBON DIOXIDE 30 mmol/L (22-30); CHLORIDE 101 mmol/L (98-107); GFR AFRICAN-AMERICAN > 60; GLUCOSE,RANDOM 136 mg/dL (75-110); POTASSIUM 3.7 MMOL/L (3.6-5.0); SODIUM 141 mmol/l (132-148); TOTAL PROTEIN 7.2 G/DL (6.3-8.2)
[2017-01-07] MEDS: Venlafaxine 150 mg ER Cap PO SCH (09:01)
[2017-01-07] MEDS: Fluticasone-Salmeterol 500-50mcg Diskus IH SCH ×2 (09:02→21:19)
--- NOTE | 2017-01-07 19:27 | PCM.PYCHPN ---
Psychiatric Progress Note - Psychiatric Progress Note Patient seen today, length of contact: PATIENT EVALUATED DISCUSSED WITH TEAM CHART REVIEWED 30MIN Patient Chief Complaint: I WANT TO GET OUT OF HERE AND END IT ALL PATIENT WITH NO EYE CONTACT UNDERPRODUCTIVE SPEECH UNCOOPERATIVE WITH INTERVIEW Problems Identified/Issues Discussed: MAJOR DEPRESSION SUICIDAL IDEATIONS PATIENT CONTINUES TO BE ISOLATIVE SELECTIVELY MUTE PATIENT CONTINUES TO HAVE ACTIVE SUICIDAL IDEATIONS, NON COOPERATIVE WITH TREATMENT REFUSING TO EAT REFUSING PARTIALLY COMPLIANT WITH MEDICATIONS PATIENT REQUESTED TO BE DISCHARGED AND SIGNED 48 HOUR NOTICE PATIENT CONTINUES TO BE HIGH SUICIDE RISK PATIENT REFERRED FOR SCREENING FOR INVOLUNTARY ADMISSION YET NOT ACCEPTED PATIENT HOWEVER CONTINUES TO BE UNCOOPERATIVE, VERBALIZING ACTIVE SUICIDAL IDEATIONS WITH PLAN TO SHOOT HIMSELF STATING THAT HE HAS HIS DOG [facility] AND HIS PLAN IS TO JOIN HIS DOG IN Cmed SPOKE IN LENGTH ADVISING PATIENT NOT TO SIGN HIMSELF AGAINST MEDICAL ADVISE PATIENT DECLINED PATIENT CONTINUES TO BE HIGH RISK WILL BE REFERRED TO BE SCREENED AGAIN FOR HIGH ACUISUICIDE RISK Medication Change: No Medical Record Reviewed: No Mental Status Examination - Cognitive Function Orientation: Person, Place Attention: Poor Concentration: Poor Association: WNL Fund of Knowledge: WNL Decription of patient's judgement and insights: IFAIR POOR INSIGHT POOR JUDGMENT POOR IMPULSE CONTROL - Mood Mood: Depressed, Anxious - Affect Affect: Constricted, Depressed - Speech Speech: Soft Additional comments: PATIENT UNDERPRODUCTIVE, POOR COMMUNICATION SELECTIVE MUTISM AND POOR EYE CONTACT - Formal Thought Process Formal Thought Process: Paranoia Psychotic Thoughts and Behaviors: PATIENT GUARDED PARANOID UNCOOPERATIVE APPEARS INTERNALLY PREOCCUPIED CONTINUES TO HAVE ACTIVE SUICIDAL THOUGHTS - Suicidal Ideation Suicidal Ideation: Yes - Homicidal Ideation Homicidal Ideation: No Plan: TO SHOOT HIMSELF WITH A GUN Goal/Treatment Plan - Goal/Treatment Plan Need for Continued Stay: Severe depression anxiety Progress Toward Problem(s) and Goals/Treatment Plan: patient continues to have active suicidal thoughts even on the unit patient stated he would find any means on the unit to hurt himself continue on 1;1 observation for suicidal risk continue with abilify and effexor patient requesting to leave however continues to be high suicide risk will be screened for involuntary admission
[2017-01-08] MEDS: Venlafaxine 150 mg ER Cap PO SCH (09:01)
[2017-01-08] MEDS: Fluticasone-Salmeterol 500-50mcg Diskus IH SCH (09:02)
[2017-01-08 09:39] VITALS: BP 140/73; PULSE 100; RESP 20; TEMP 98.2
--- NOTE | 2017-01-08 11:10 | PCM.BM ---
Treatment Plan Problems - Problems identified on initial assessmt Problem 1 Date Initiated: 01/04/17 Hoplessness/Helplessness Date Initiated: 01/04/17 Time Initiated: 11:29 Assessment reference: NA Status: Active Treatment assets and liabiliti Patient Assests: adapts well, self-reliant, ADL independent, negotiates basic needs, good past tx response, cognitively intact Patient Liabilities: financial problems, poor support system, other (unstable housing) - Diagnosis (1) Borderline personality disorder Status: Acute (2) Borderline personality disorder Status: Acute (3) Depression Status: Acute - Milieu Protocol Maintain good personal hygiene: daily Encourage regular showers, daily Remind patient to perform daily oral care, every shift Assist patient to perform ADL's Maintain personal safety: every shift Educate patient to report safety concerns to staff, every shift Monitor environment for contraband/sharps Medication safety: Monitor for expected outcome, potential side effects: every shift, Assess barriers to learning: every shift, Assess readiness for medication education: every shift Milieu Narrative: patient continues to have active suicidal thoughts even on the unit patient stated he would find any means on the unit to hurt himself continue on 1;1 observation for suicidal risk continue with abilify and effexor patient requesting to leave however continues to be high suicide risk will be screened for involuntary admission Family Contact Family involvement: Patient does not wish Family/SO involvement Family contact: Patient declines to allow family contact at present - Outside Agency Agency 1 Care involvment: Other Agency contact name: [facility] [place] [facility] -[place] Agency contact number: ([phone]) - Goals for Treatment Patient goals for treatment: Patient to continue stabilization on 3NP through medication management and group/supportive therapy. Patient to be encouraged to attend groups regularly to promote self-awareness, sobriety, and improve insight , coping skills and self-esteem. Patient to be provided with referral for appropriate level of aftercare to reduce risk of future hospitalizations and ensure safety in the community. Discharge/Continuing Care - Education Needs Education Needs: Patient Medication, Patient Coping Skills, Patient Community resources, Patient Aftercare Safety Plan - Discharge Discharge Criteria: Tolerates medication w/o severe side effects, Free of Suicidal thoughts, Free of agitation, Normal sleep pattern, Ability to care for self, Reduction of target symptoms Discharge to:: Half-Way - Treatment Team Participation Patient/Family/SO Statement: patient continues to have active suicidal thoughts even on the unit patient stated he would find any means on the unit to hurt himself continue on 1;1 observation for suicidal risk continue with solomon patient requesting to leave however continues to be high suicide risk will be screened for involuntary admission Discussed with Family/SO: No
--- NOTE | 2017-01-08 11:32 | PCM.PYCHDC ---
Mental Status Examination - Mental Status Examination Orientation: Person, Place, Situation Memory: Intact Mood: Neutral Affect: Constricted Speech: Loud Attention: WNL Concentration: WNL Association: WNL Fund of Knowledge: WNL Formal Thought Process: No Impairment Description of patient's judgement and insight: poor insight and poor judgment Psychotic Thoughts and Behaviors: patient denied any current psychotic symptoms, denied command hallucinations denied perceptual disturbances non elicited Suicidal Ideation: No Current Homicidal Ideation?: No Discharge Summary - Discharge Note Reason for Hospitalization: patient was brought to emergency room by ambulance after calling suicidal hot line stating that he has suicidal ideations Psychiatric History (includes Medical, Family, Personal Hx): pt has histoey of bipolar disorder , borderline and dependent personality Consultations:: List each consultation separately and include: 1. Reason for request. 2. Findings. 3. Follow-up Summary of Hospital Course include:: 1. Description of specific treatment plan utilized for patients during their course of treatmen. 2. Summarize the time- course for resolution of acute symptoms and/or regressed behaviors. 3. Describe issues identified and worked on during hospitalization. 4. Describe medication utilized. 5. Describe medical problems identified and treated. 6. 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 , on day of admission he started to have suicidal thoughts with plan to jump off the bridge, he called suicidal hot line and was brought to ER for evaluation patient on evaluation extremely anxious and depressed, poor eye contact underproductive speech requesting to leave and continued ot have thoughts to end his life with plan to jump off [facility], patient was placed on 1:1 precautions for suicide risk and was reffered to screening services for transfer to higher level of care as patient signed to leave against medical advise and was still on evaluation verbalizing suicidal thoughts patient however was foun by screeners not to meet criteria for involuntary admission patient has been started on abilify effexor and trazadone, he was encouraged to attend groups but patinet became angry irritable, uncooperative with treatment hostile towards staff and insisting on leaving while verbalizing suicidal ideations, [facility] piano case maker of patient had an interview with him with attempt to convince patient to withdraw the 48 hours notice and ccontinue with treatment till stabilization patient however refused and acoordingly was referred again to screening services for invoulantry admission as continued to verbalize suicidal ideations however patient was again found not to meet criteria for involuntary admission, afterwhich patient on evaluation denied any current suicidal ideations 1:1 observation was discontinued and patient continued to request to be discharged against medical advise at current mental status patient denied any current suicidal or homicidal ideations denied perceptual disturbances, denied command hallucinations patient ICMS worker was notified to follow up with patient in community and outpatient appointment at [facility] was arranged patient will be discharged to detention - Diagnosis (1) Borderline personality disorder Current Visit: Yes Status: Acute (2) Borderline personality disorder Current Visit: Yes Status: Chronic (3) Depression Current Visit: Yes Status: Acute (4) Bipolar disorder Current Visit: Yes Status: Acute - Final Diagnosis (DSM 5) Condition upon Discharge: FAIR Disposition: AGAINST MEDICAL ADVICE Follow-up Treatment Plan: patient to follow up at [facility] discharge medications abilify , effexor 150 mg trazdone 100mg Prescriptions/Medication Reconciliation: ARIPiprazole [Abilify] 10 mg PO DAILY #30 traZODone [Desyrel] 100 mg PO HS #30 Venlafaxine [Effexor XR] 150 mg PO DAILY 30 Days #30 cer - Antipsychotic Medications Pt discharged on 2 or more routine antipsychotic medications: No
== END 2017-01-08 13:23 | disposition left against medical advice (07) | DRG 430 ==
LOC: H.ER 04:08 → H.ERHOLD 06:24 → H.PSYCH 09:27
PROVIDERS: ADMIT Psychiatry & Neurology Psychiatry; ATTEND Psychiatry & Neurology Psychiatry
PROC: GZHZZZZ Group Psychotherapy (ICD-10-PCS; principal; 2017-01-04)
PROC: GZ58ZZZ Individual Psychotherapy, Cognitive-Behavioral (ICD-10-PCS; 2017-01-04)
DX: F33.2 Major depressive disorder, recurrent severe without psychotic features (principal); R45.851 Suicidal ideations; F10.21 Alcohol dependence, in remission; F60.3 Borderline personality disorder; F60.7 Dependent personality disorder; F41.9 Anxiety disorder, unspecified; F94.0 Selective mutism; J20.9 Acute bronchitis, unspecified; J45.909 Unspecified asthma, uncomplicated; F17.210 Nicotine dependence, cigarettes, uncomplicated; Z87.01 Personal history of pneumonia (recurrent)

== ENCOUNTER 2017-01-08 17:32 | Emergency (ER) | payer MEDICAID ==
[2017-01-08 17:33] VITALS: BMI 31.5
[2017-01-08 17:54] VITALS: PULSE 108; RESP 16; TEMP 97.3; O2SAT 97
--- NOTE | 2017-01-08 19:04 | ED PDOC ---
HPI: Psych/Substance Abuse Time Seen by Provider: 01/08/17 17:57 Chief Complaint (Nursing): Psychiatric Evaluation Chief Complaint (Provider): "can't get in longterm" Additional Complaint(s): Recently hospitalized for depression and discharged today. Wouldn't be allowed back in longterm due to the fact that he left AMA. Denies SI/HI or hallucinations. Past Medical History Reviewed: Historical Data, Nursing Documentation, Vital Signs Vital Signs: Last Vital Signs Temp 97.3 F L 01/08/17 17:42 Pulse 108 H 01/08/17 17:42 Resp 16 01/08/17 17:42 BP Pulse Ox 97 01/08/17 17:42 - Medical History PMH: Anxiety, Asthma, Bronchitis (Currently have Bronchitis), Depression, Pneumonia Denies: Diabetes, Hepatitis, HIV, HTN, Chronic Kidney Disease, Seizures, Sexually Transmitted Disease - Family History Family History: States: Unknown Family Hx - Immunization History Hx Tetanus Toxoid Vaccination: No Hx Influenza Vaccination: (unk) Hx Pneumococcal Vaccination: (unk) - Home Medications Home Medications: Ambulatory Orders Medication Instructions Recorded ARIPiprazole [Abilify] 10 mg PO DAILY #30 01/08/17 Albuterol HFA [Ventolin HFA 90 2 puff INH Q6 PRN inhaler 01/08/17 mcg/actuation (8 g)] Azithromycin [Zithromax] 250 mg PO DAILY tab 01/08/17 DiphenhydrAMINE [Benadryl] 50 mg PO Q6 PRN cap 01/08/17 Fluticasone/Salmeterol 500/50 1 puff IH Q12 puff 01/08/17 [Advair Diskus 500/50] Gabapentin [Neurontin] 300 mg PO TID cap 01/08/17 Loratadine [Claritin] 10 mg PO DAILY tab 01/08/17 Venlafaxine [Effexor XR] 150 mg PO DAILY 30 Days #30 cer 01/08/17 traZODone [Desyrel] 100 mg PO HS #30 01/08/17 - Allergies Allergies/Adverse Reactions: Allergies Allergy/AdvReac Type Severity Reaction Status Date / Time No Known Allergies Allergy Verified 01/04/17 04:11 Review of Systems ROS Statement: Except As Marked, All Systems Reviewed And Found Negative (as per HPI) Psych: Negative for: Psychosis, Suicidal ideation, Withdrawal Physical Exam - Reviewed Nursing Documentation Reviewed: Yes Vital Signs Reviewed: Yes - Physical Exam Appears: Positive for: No Acute Distress Head Exam: Positive for: ATRAUMATIC, NORMOCEPHALIC Skin: Positive for: Warm, Dry Neurologic/Psych: Positive for: Alert, Oriented, Mood/Affect (normal). Negative for: Motor/Sensory Deficits - ECG O2 Sat by Pulse Oximetry: 97 - Progress ED Course And Treament: Evaluated GHASSAN Wise. Stable for DC. Disposition - Clinical Impression Clinical Impression: Bipolar disorder - Disposition Disposition: Routine/Home Disposition Time: 19:04 Condition: GOOD Additional Instructions: PSYCHIATRICALLY STABLE FOR [facility] Instructions: Bipolar Disorder (ED) Forms: [employer] (Italian)
[2017-01-08 19:25] VITALS: BP 132/74
== END 2017-01-08 19:26 | disposition home or self-care (01) ==
LOC: H.ER 17:32
DX: F31.9 Bipolar disorder, unspecified (principal); F41.9 Anxiety disorder, unspecified; J45.909 Unspecified asthma, uncomplicated

== ENCOUNTER 2017-02-11 17:36 | Emergency (ER) | payer MEDICARE, MEDICAID ==
[2017-02-11 17:37] VITALS: BMI 31.5
[2017-02-11 17:38] VITALS: BP 155/92; PULSE 96; RESP 16; TEMP 98.5; O2SAT 96
--- NOTE | 2017-02-11 18:13 | ED PDOC ---
HPI: General Adult Time Seen by Provider: 02/11/17 17:41 Chief Complaint (Nursing): Headache Chief Complaint (Provider): Right lower dental pain History Per: Patient History/Exam Limitations: no limitations Onset/Duration Of Symptoms: Days Have you had recent travel within the past 21 days to any of the following countries: [place], [place], [place] or [place]?: No Current Symptoms Are (Timing): Still Present Additional Complaint(s): Pt states he has been taking tylenol #3 and motrin at home but needs something stronger for the pain. Pt states that we went to his dentist but the dentist "blew him off". Past Medical History Vital Signs: Last Vital Signs Temp 98.5 F 02/11/17 17:37 Pulse 96 H 02/11/17 17:37 Resp 16 02/11/17 17:37 BP 155/92 H 02/11/17 17:37 Pulse Ox 96 02/11/17 17:37 - Medical History PMH: Anxiety, Asthma, Bronchitis (Currently have Bronchitis), Depression, Pneumonia Denies: Diabetes, Hepatitis, HIV, HTN, Chronic Kidney Disease, Seizures, Sexually Transmitted Disease - Family History Family History: States: Unknown Family Hx - Immunization History Hx Tetanus Toxoid Vaccination: No Hx Influenza Vaccination: (unk) Hx Pneumococcal Vaccination: (unk) - Home Medications Home Medications: Ambulatory Orders Medication Instructions Recorded ARIPiprazole [Abilify] 10 mg PO DAILY #30 01/08/17 Albuterol HFA [Ventolin HFA 90 2 puff INH Q6 PRN inhaler 01/08/17 mcg/actuation (8 g)] Azithromycin [Zithromax] 250 mg PO DAILY tab 01/08/17 DiphenhydrAMINE [Benadryl] 50 mg PO Q6 PRN cap 01/08/17 Fluticasone/Salmeterol 500/50 1 puff IH Q12 puff 01/08/17 [Advair Diskus 500/50] Gabapentin [Neurontin] 300 mg PO TID cap 01/08/17 Loratadine [Claritin] 10 mg PO DAILY tab 01/08/17 Venlafaxine [Effexor XR] 150 mg PO DAILY 30 Days #30 cer 01/08/17 traZODone [Desyrel] 100 mg PO HS #30 01/08/17 - Allergies Allergies/Adverse Reactions: Allergies Allergy/AdvReac Type Severity Reaction Status Date / Time No Known Allergies Allergy Verified 01/04/17 04:11 - ECG O2 Sat by Pulse Oximetry: 96 Disposition - Disposition Forms: [employer] (Serbian)
== END 2017-02-11 18:00 | disposition home or self-care (01) ==
LOC: H.ER 17:36
DX: K08.89 Other specified disorders of teeth and supporting structures (principal); F32.9 Major depressive disorder, single episode, unspecified; F41.9 Anxiety disorder, unspecified; J45.909 Unspecified asthma, uncomplicated

== ENCOUNTER 2017-02-16 22:34 | Emergency (ER) | payer MEDICARE, MEDICAID ==
[2017-02-16 22:34] VITALS: BMI 31.5
[2017-02-16 22:38] VITALS: BP 120/72; PULSE 99; TEMP 98.1; O2SAT 95
[2017-02-17] MEDS ORDERED: Albuterol 0.042% Inhal Sol (1.25 mg/3 mL) UD ONE (00:03)
[2017-02-17] MEDS: Albuterol 0.083% Inhal Sol (2.5 mg/3 mL) UD INH ONE (00:05)
--- NOTE | 2017-02-17 00:15 | ED PDOC ---
HPI: Asthma Time Seen by Provider: 02/16/17 22:40 Chief Complaint (Nursing): Respiratory Distress Chief Complaint (Provider): Asthma History Per: Patient History/Exam Limitations: no limitations Current Symptoms Are (Timing): Still Present Associated Symptoms: Cough. denies: Fever Additional Complaint(s): 46 year old male presents to ED with complaints of asthma exacerbation and has a history of bipolar disorder, borderline personality disorder, and depression. (-) fever, vomiting, or diarrhea. (+) mild dry cough. PCP: Non [facility] Past Medical History Reviewed: Historical Data, Nursing Documentation, Vital Signs Vital Signs: Last Vital Signs Temp 98.1 F 02/16/17 22:36 Pulse 99 H 02/16/17 22:36 Resp 22 02/16/17 22:36 BP 120/72 02/16/17 22:36 Pulse Ox 95 02/16/17 22:36 - Medical History PMH: Anxiety, Asthma, Bronchitis (Currently have Bronchitis), Depression, Pneumonia Denies: Diabetes, Hepatitis, HIV, HTN, Chronic Kidney Disease, Seizures, Sexually Transmitted Disease - Family History Family History: States: Unknown Family Hx - Living Arrangements Living Arrangements: Other (Undomiciled) - Immunization History Hx Tetanus Toxoid Vaccination: No Hx Influenza Vaccination: (unk) Hx Pneumococcal Vaccination: (unk) - Home Medications Home Medications: Ambulatory Orders Medication Instructions Recorded ARIPiprazole [Abilify] 10 mg PO DAILY #30 01/08/17 Albuterol HFA [Ventolin HFA 90 2 puff INH Q6 PRN inhaler 01/08/17 mcg/actuation (8 g)] Azithromycin [Zithromax] 250 mg PO DAILY tab 01/08/17 DiphenhydrAMINE [Benadryl] 50 mg PO Q6 PRN cap 01/08/17 Fluticasone/Salmeterol 500/50 1 puff IH Q12 puff 01/08/17 [Advair Diskus 500/50] Gabapentin [Neurontin] 300 mg PO TID cap 01/08/17 Loratadine [Claritin] 10 mg PO DAILY tab 01/08/17 Venlafaxine [Effexor XR] 150 mg PO DAILY 30 Days #30 cer 01/08/17 traZODone [Desyrel] 100 mg PO HS #30 01/08/17 Albuterol HFA [Ventolin HFA 90 1 - 2 puff IH Q4H PRN #1 bottle 02/17/17 mcg/actuation (8 g)] - Allergies Allergies/Adverse Reactions: Allergies Allergy/AdvReac Type Severity Reaction Status Date / Time No Known Allergies Allergy Verified 01/04/17 04:11 Review of Systems ROS Statement: Except As Marked, All Systems Reviewed And Found Negative Constitutional: Negative for: Fever Respiratory: Positive for: Cough (mild dry cough) Gastrointestinal: Negative for: Vomiting, Diarrhea Physical Exam - Reviewed Nursing Documentation Reviewed: Yes Vital Signs Reviewed: Yes - Physical Exam Appears: Positive for: Non-toxic, No Acute Distress (Sleeping in room) Head Exam: Positive for: ATRAUMATIC, NORMOCEPHALIC Skin: Positive for: Normal Color, Warm, Dry Eye Exam: Positive for: Normal appearance ENT: Positive for: Normal ENT Inspection Neck: Positive for: Normal, Painless ROM Cardiovascular/Chest: Positive for: Regular Rate, Rhythm. Negative for: Murmur Respiratory: Positive for: Normal Breath Sounds. Negative for: Respiratory Distress Gastrointestinal/Abdominal: Positive for: Normal Exam, Soft. Negative for: Tenderness Back: Positive for: Normal Inspection Extremity: Positive for: Normal ROM. Negative for: Deformity Neurologic/Psych: Positive for: Alert, Oriented. Negative for: Motor/Sensory Deficits - ECG O2 Sat by Pulse Oximetry: 95 (RA) Pulse Ox Interpretation: Normal Medical Decision Making Medical Decision Makin Initial impression: asthma exacerbation Initial plan: * Albuterol 0.083% 2.5 mg PO * Prednisone 40mg PO * Nebulizer Tx * Peak flow pre/post Tx * Re-eval pt feels better, will be dc home Scribe Attestation: Documented by Henny Bray acting as a scribe for Jos Klein MD. Scribe Attestation: All medical record entries made by the Scribe were at my direction and personally dictated by me. I have reviewed the chart and agree that the record accurately reflects my personal performance of the history, physical exam, medical decision making, and the department course for this patient. I have also personally directed, reviewed, and agree with the discharge instructions and disposition. Disposition - Clinical Impression Clinical Impression: Asthma attack - Patient ED Disposition Is Patient to be Admitted: No Counseled Patient/Family Regarding: Studies Performed, Diagnosis, Need For Followup - Disposition Disposition: Routine/Home Disposition Time: 00:00 Condition: IMPROVED Additional Instructions: follow up with your primary doctor in 1-2 days return to the [facility] any worsening or concerning symptoms Prescriptions: Albuterol HFA [Ventolin HFA 90 mcg/actuation (8 g)] 1 - 2 puff IH Q4H PRN #1 bottle PRN Reason: Wheezing Instructions: Asthma (ED) Forms: [employer] (Danish)
[2017-02-17 02:31] VITALS: RESP 19
== END 2017-02-17 02:31 | disposition home or self-care (01) ==
LOC: H.ER 22:34
DX: J45.901 Unspecified asthma with (acute) exacerbation (principal); F32.9 Major depressive disorder, single episode, unspecified; F41.9 Anxiety disorder, unspecified